=== PATIENT | female | born 1940 | race Caucasian/White ===

== ENCOUNTER 2020-07-07 18:43 | Emergency (ER) | payer MEDICARE ==
[2020-07-07] MEDS ORDERED: HYDROCODON-ACE1 EAC4 PO (20:47)
[2020-07-07] MEDS ORDERED: ZOFRAN ODT 4 MG4 MG PO (20:52)
[2020-07-12] MEDS ORDERED: BUSPIRONE HCL5 MG PO (11:55)
[2020-07-12] MEDS ORDERED: AMLODIPINE BESYL5 MG PO (11:55)
[2020-07-12] MEDS ORDERED: ATORVASTATIN CA10 MG PO (11:55)
[2020-07-12] MEDS ORDERED: VENLAFAXINE HC150 MG PO (11:56)
[2020-07-12] MEDS ORDERED: HYDROCODON-ACE1 EAC2 PO (14:40)
== END 2020-07-07 20:56 | disposition home or self-care (01) ==
LOC: ER1 18:43
DX: S52.501A Unspecified fracture of the lower end of right radius, initial encounter for closed fracture (principal); I10 Essential (primary) hypertension; W19.XXXA Unspecified fall, initial encounter
CPT/HCPCS: 25605; 29125; 73110; 99283

== ENCOUNTER → 2020-07-12 | Day surgery (SDC) | payer MEDICARE ==
[~2020-07-12] VITALS: Ht 157.5 cm; Wt 66.2 kg
[~2020-07-12] MED LIST: AMLODIPINE BESYL5 MG PO; ATORVASTATIN CA10 MG PO; BUSPIRONE HCL5 MG PO; CIPRO500 MG PO; FLAGYL500 MG PO; HYDROCODON-ACE1 EAC2 PO; HYDROCODON-ACE1 EAC4 PO; VENLAFAXINE HC150 MG PO; ZOFRAN ODT 4 MG4 MG PO; ZOFRAN4 MG PO
[2020-07-12 11:53] LABS: HEMOGLOBIN 13.4 gm/dl (12.3-15.3); RED BLOOD COUNT 4.4 M/UL (4.00-5.10); WHITE BLOOD COUNT 8.7 K/UL (4.5-11.0)
== END | disposition home or self-care (01) ==
LOC: OR 07:30
PROVIDERS: Orthopaedic Surgery
DX: S52.571A Other intraarticular fracture of lower end of right radius, initial encounter for closed fracture (principal); I10 Essential (primary) hypertension; E78.5 Hyperlipidemia, unspecified; Z85.3 Personal history of malignant neoplasm of breast; Z79.899 Other long term (current) drug therapy; W01.0XXA Fall on same level from slipping, tripping and stumbling without subsequent striking against object, initial encounter
CPT/HCPCS: 36415; 73100; 76000; 80048; 85025; 93005; C1713; J0171; J0690; J1100; J2001; J2405; J2704; J2795; J3010; J7030; J7120

== ENCOUNTER 2020-08-06 13:52 | Emergency (ER) | payer MEDICARE ==
[~2020-08-06 13:52] MED LIST changes: -CIPRO500 MG PO; -FLAGYL500 MG PO; -ZOFRAN4 MG PO
[2020-08-06 15:59] LABS: HEMOGLOBIN 13.1 gm/dl (12.3-15.3); RED BLOOD COUNT 4.36 M/UL (4.00-5.10); WHITE BLOOD COUNT 12.4 K/UL (4.5-11.0)
[2020-08-06] MEDS ORDERED: FLAGYL500 MG PO (19:24)
[2020-08-06] MEDS ORDERED: CIPRO500 MG PO (19:24)
[2020-08-06] MEDS ORDERED: ZOFRAN4 MG PO (19:24)
== END 2020-08-06 19:40 | disposition home or self-care (01) ==
LOC: ER1 13:52
PROVIDERS: Preventive Medicine Occupational Medicine
DX: K52.9 Noninfective gastroenteritis and colitis, unspecified (principal); I10 Essential (primary) hypertension
CPT/HCPCS: 71045; 80053; 80307; 81001; 82550; 82553; 83690; 83874; 84484; 85025; 86140; 87086; 96374; 96375; 99284; C9113; J2405; Q9967

== ENCOUNTER → 2021-03-02 | Outpatient (CLI) | payer MEDICARE ==
[~2021-03-02] MED LIST changes: +CIPRO500 MG PO; +FLAGYL500 MG PO; +ZOFRAN4 MG PO
== END ==
LOC: RT 13:04
DX: Z01.810 Encounter for preprocedural cardiovascular examination (principal)
CPT/HCPCS: 93005

== ENCOUNTER → 2021-04-08 | Outpatient (CLI) | payer MEDICARE | LOC: RAD 09:00 | DX: R19.7 Diarrhea, unspecified (principal); K57.30 Diverticulosis of large intestine without perforation or abscess without bleeding | CPT/HCPCS: 74270 ==